=== PATIENT | female | born 1955 | race Caucasian/White ===

== ENCOUNTER → 2018-03-12 16:22 | Outpatient (CLI) | payer BC, SELFPAY ==
[2018-03-12 17:50] LABS: BUN 21 mg/dL (7-18); Creatinine, Serum 0.86 mg/dL (0.55-1.02); EST Glomerular Filtration Rate 71 mL/min (>60); Glucose 89 mg/dL (74-106); Hemoglobin 13.3 g/dl (12.0-15.0); Mean Corp Hgb Conc 32.4 g/gl (32-36); Mean Corpuscular Hgb 29.8 pg (27.0-32.0); Mean Corpuscular Volume 91.7 fL (81-99); Mean Platelet Vol. 10.4 fl (6.2-12.0); Platelet Count 315 K/mm3 (150-450); RBC Distribution Width CV 14.3 % (11.6-14.6); RBC Distribution Width SD 47.2 fl (35.1-43.9); Red Blood Count 4.47 M/mm3 (4.2-5.4); Scan Indicated on CBC? Y/N NO; White Blood Count 5.9 K/mm3 (4.4-11.0)
[2018-03-12 17:51] LABS: Anion Gap 8 (5-15); BUN/Creat Ratio 24.5 RATIO (10-20); Calcium,Total 9.3 mg/dL (8.5-10.1); Chloride 102 mmol/L (98-107); Est Glom Filt Rate - Afr Amer 86 mL/min (>60); Potassium 3.8 mmol/L (3.5-5.1); Sodium Level 140 mmol/L (136-145)
--- OUTSIDE RECORDS SUMMARY | 2018-05-17 11:52 | XMS RPT_ITS ---
:1955 Author Organization [facility] Care Team Providers Name Role Phone Natalia Gallo Attending Unavailable PROVIDER, UNKNOWN Referring Unavailable Jorge Luis Guillen Primary Care Unavailable Brian Pritchett Attending Unavailable PROVIDER, UNKNOWN Referring Unavailable Jorge Luis Guillen Primary Care Unavailable PROVIDER, UNKNOWN Referring Unavailable Jorge Luis Guillen Primary Care Unavailable MELANIE GOMEZ Attending Unavailable Brian Pritchett Attending Unavailable Brian Pritchett Referring Unavailable Jorge Luis Guillen Primary Care Unavailable PROBLEMS PROBLEMS DATE TYPE CONDITION / CODE ATTENDING STATUS SOURCE 02/19/2018 Admitting Essential (primary) MELANIE GOMEZ Active [facility] Diagnosis hypertension / System I10(ICD-10) Repository 02/19/2018 Admitting Hyperlipidemia, MELANIE GOMEZ Active [facility] Diagnosis unspecified / System E78.5(ICD-10) Repository 02/19/2018 Admitting Hypothyroidism, MELANIE GOMEZ Active [facility] Diagnosis unspecified / System E03.9(ICD-10) Repository 02/19/2018 Admitting Obesity, unspecified MELANIE GOMEZ Active [facility] Diagnosis / E66.9(ICD-10) System Repository 02/11/2018 Admitting Encounter for [facility] Diagnosis preprocedural Brian System cardiovascular Repository examination / Z01.810(ICD-10) 06/05/2017 Admitting Encntr screen Chriss Noble Active [facility] Diagnosis mammogram for Natalia System malignant neoplasm Repository of breast / Z12.31(ICD-10) PROCEDURES PROCEDURES No Procedure Records FoundRESULTS RESULTS CBC-COMPLETE BLOOD CNT Collected: 03/12/2018 Status: F Source: [place] NO DIFF 4:33 [place] [facility] [place] CODE TESTS RESULT OUT OF RANGE REFERENCE UNITS LAB L100.1000 4.4-11.0 K/mm3 Normal WBC 5.9 LAB L100.1200 4.2-5.4 M/mm3 Normal RBC 4.47 LAB L100.1300 12.0-15.0 g/dl Normal HGB 13.3 LAB L100.1400 37-47 % Normal HCT 41.0 LAB L100.1500 81-99 fL Normal MCV 91.7 LAB L100.1600 27.0-32.0 pg Normal MCH 29.8 LAB L100.1700 32-36 g/gl Normal MCHC 32.4 LAB L100.1810 11.6-14.6 % Normal RDW CV 14.3 LAB L100.1820 35.1-43.9 fl High RDW SD 47.2 LAB L100.1900 150-450 K/mm3 Normal PLT 315 LAB L100.2000 6.2-12.0 fl Normal MPV 10.4 Performed By: #### L100.0500 #### [facility] [address] [place], [address] BASIC METABOLIC Collected: 03/12/2018 Status: F Source: [place] PROFILE (BMP) 4:33 PM [facility] [place] CODE TESTS RESULT OUT OF RANGE REFERENCE UNITS LAB L501.0100 74-106 mg/dL Normal GLU 89 Result Comment: Please note revised GLUCOSE reference range effective 2017. LAB L501.1000 7-18 mg/dL High BUN 21 LAB L501.1100 0.55-1.02 mg/dL Normal CREAT,SERUM 0.86 Result Comment: The validity of the calculated GFR AND GFRAA in patients over 70 years has not been determined. Clinical correlation is essential. LAB L501.1110 >60 mL/min Normal EST GFR 71 Result Comment: Non- GFR Calc LAB L501.1115 >60 mL/min Normal EST GFR - AA 86 Result Comment: GFR Calc LAB L501.1300 10-20 RATIO High BUN/CRE 24.5 LAB L501.2200 8.5-10.1 mg/dL CA Normal 9.3 LAB L501.5300 136-145 mmol/L NA Normal 140 LAB L501.5600 3.5-5.1 mmol/L K Normal 3.8 LAB L501.5900 98-107 mmol/L CL Normal 102 LAB L501.6100 21.0-32.0 mmol/L Normal CO2 30.0 LAB L501.6200 5-15 Normal GAP 8 Performed By: #### L500.2500 #### [facility] [address] [place], [address] ED PROVIDER NOTE Observed: 02/19/2018 Status: F Source: [employer] 2:11 PM SYSTEM REPOSITORY [facility] ED eMERGENCY dEPARTMENT eNCOUnter Pt Name: Aysha Gutierrez Birthdate 1955 Date of evaluation: 02/19/2018 Provider: BLAISE BRANNON CNP CHIEF COMPLAINT Chief Complaint Patient presents with ? Hypertension Suppose to knee surgery today they were unable to do the surgery due to her BP being elevated, denies any blurry vision or headache HISTORY OF PRESENT ILLNESS (Location/Symptom, Timing/Onset,Context/Setting, Quality, Duration, Modifying Factors, Severity) Note limiting factors. HPI Aysha Gutierrez is a 62 y.o. female who presents to the emergency department Coming in with the complaint of hypertension. She denies symptoms. Denies blurred vision. Denies dizziness. Denies headache, chest pain, shortness breath, nausea vomiting, fever, chills. She states she came in for blood pressure adjustment because she was supposed to have meniscal surgery due to her right knee. States her blood pressure was 200/100 systolic and they would not do the surgery. She states that she is given anxiety medications but was still high. They sent her home and told her to follow up with primary care doctor. Came into here hoping to get treatment for her high blood pressure. Nursing Notes were reviewed. REVIEW OF SYSTEMS (2+ forlevel 4; 10+ for level 5) Review of Systems 10 point review of systems negative except for pertinent mentioned above in history of present illness above past medical history PAST MEDICAL HISTORY Past Medical History: Diagnosis Date ? Gout attack ? Headache(784.0) ? Hyperlipidemia ? Hypertension ? Hypothyroidism ? Obesity SURGICALHISTORY Past Surgical History: Procedure Laterality Date ? SECTION ? COLONOSCOPY 2006 ? KNEE CARTILAGE SURGERY Left ? LIPOMA RESECTION Dr Castro CURRENT MEDICATIONS Discharge Medication List as of 02/19/2018 3:16 PM CONTINUE these medications which have NOT CHANGED Details losartan (COZAAR) 100 MG tablet TAKE 1 TABLET DAILY, Disp- 90 tablet, R-1Normal levothyroxine (SYNTHROID) 75 MCG tablet TAKE 1 TABLET DAILY, Disp-90 tablet, R-1Normal Multiple Vitamins-Minerals (CORAL CALCIUM PLUS PO) Take 1 tablet by mouth dailyHistorical Med ALLERGIES Patient has no known allergies. FAMILY HISTORY Family History Problem Relation Age of Onset ? Cancer Mother breast ? Diabetes Mother ? Cirrhosis Mother ? Heart Disease Father SOCIAL HISTORY Social History Social History ? Marital status: Spouse name: N/A ? Number of children: N/A ? Years of education: N/A Social History Main Topics ? Smoking status: Never Smoker ? Smokeless tobacco: Never Used ? Alcohol use No ? Drug use: No ? Sexual activity: Yes Partners: Male Other Topics Concern ? None Social History Narrative ? None SCREENINGS @FLOW([id number])@ PHYSICAL EXAM (5+ for level 4, 8+ for level 5) ED Triage Vitals [02/19/18 1421] BP Temp Temp Source Pulse Resp SpO2 Height Weight (!) 218/125 98.3 ?F (36.8 ?C) Temporal 86 16 99 % -- 212 lb (96.2 kg) Physical Exam GENERAL: The patient appears nourished and normally developed. Vital signs as documented. EYES: Head exam is unremarkable. No scleral icterus or orbital trauma noted. HEENT: Mucous membranes moist. Nares patent without copious rhinorrhea. No enlarged lymphadenopathy. LUNGS: Lungs are clear to auscultation, without any respiratory distress. CARDIAC: Rhythm is regular. No dysrythmias or murmurs. ABDOMEN: Nontender with no obvious masses, and no peritoneal signs. EXTREMITIES: Non edematous, with no obvious deformities. SKIN: Good color, with no significant rashes. No pallor. NEURO: No obvious neurological deficits, normal sensation and strength bilaterally. patient able to ambulate. DIAGNOSTIC RESULTS EKG (Per Emergency Physician) RADIOLOGY (Per Emergency Physician): Interpretation per the Radiologist below, if available at the time of this note: No results found. LABS: Labs Reviewed - No data to display All other labs were within normal range or not returned as of this dictation. EMERGENCY DEPARTMENT COURSE and DIFFERENTIAL DIAGNOSIS/MDM: Vitals: Vitals: 02/19/18 1421 02/19/18 1434 02/19/18 1502 02/19/18 1527 BP: (!) 218/125 (!) 189/106 (!) 174/92 (!) 180/100 Pulse: 86 85 78 79 Resp: 16 Temp: 98.3 ?F (36.8 ?C) TempSrc: Temporal SpO2: 99% 99% 100% 96% Weight: 96.2 kg (212 lb) Medications - No data to display MDM. I have evaluated this patient on my own, per my scope of practice with an attending available for consultation. He shouldn't asymptomatic hypertension. Likely has been going on for quite some time. Has been compliant but I believe she meets blood pressure medication adjustments. Told to follow up with primary care doctor. I do not believe further intervention is needed at this time as she is asymptomatic and has never had symptoms. No headaches no chest pain no dizziness no blurred vision or vision changes. No abdominal pain no chest pain no fevers no chills no cough or signs of infection. He has, PE, dissection as symptoms do not relate this. Discharged home in stable condition told to follow primary care doctor for blood pressure medication adjustments. CONSULTS: None PROCEDURES: Unless otherwise noted below, none Procedures FINAL IMPRESSION 1. Essential hypertension DISPOSITION/PLAN DISPOSITION Decision To Discharge 02/19/2018 03:16:07 PM PATIENT REFERRED TO: Jorge Luis Guillen MD [address] [place] [address], [address] [facility] [address] DISCHARGE MEDICATIONS: Discharge Medication List as of 02/19/2018 3:16 PM (Pleasenote: Portions of this note were completed with a voice recognition program. Efforts were made toedit the dictations but occasionally words and phrases are mis-transcribed.) Form [id number].[id number] BLAISE BRANNON CNP (electronically signed) Emergency Medicine Provider BLAISE Brannon CNP 02/19/18 1648 PROGRESS Observed: 10/06/2017 Status: COMPLETED Source: [place] 11:00 AM [facility] REPOSITORY HNO ID: [id number] Author: Natalia Banerjee Service: (none) Author Type: Physician Type: Progress Notes Filed: 10/06/2017 11:34 AM Note Text: SUBJECTIVE: Aysha Gutierrez is a 62 year old woman who presents for us results. Uterus normal size with unchanged fibroids x 3, endo 4.9 mm and normal, L ovary with smaller cyst 1.7 cm (2.3 cm),no free fluid. Compared to prior US. No LMP recorded. Patient is postmenopausal.. Medications, allergies, surgeries, family history updated, and smoking status updated. Pt has occ twinge in LLQ; no pain today. OBJECTIVE: BP 128/82 Ht 5' 6 (1.68m) Wt 223 lb (101.2kg) BMI 36.01 kg/(m2). See US ASSESSMENT/PLAN: 1. Cyst of left ovary - ICD9: 620.2, ICD10: N83.202 (primary diagnosis) smaller 2. Intramural leiomyoma of uterus - ICD9: 218.1, ICD10: D25.1 stable Natalia Banerjee MD PROGRESS Observed: 10/06/2017 Status: COMPLETED Source: [place] 10:[address] [facility] REPOSITORY HNO ID: [id number] Author: Rhiannon Elizalde Service: (none) Author Type: (none) Type: Progress Notes Filed: 10/06/2017 11:05 AM Note Text: Patient here for [employer] US. Rhiannon Tonio [facility] MG BREAST TOMOSYNTHESIS Observed: 06/05/2017 Status: F Source: [employer] SCR BL 12:00 AM SYSTEM REPOSITORY Patient Name: AYSHA GUTIERREZ Mammography Exam Date/Time 06/05/2017 17:30:12 EDT Exam MG Breast Tomosynthesis BI Scr Ordering Physician NATALIA GALLO Accession Number [id number] CPT4 Codes 05078 (MG Breast Tomosynthesis Scr Bl), 31593 (MG MAMMO 2D SCREENING) Reason For Exam screening Report PATIENT HISTORY: Patient is postmenopausal. Family history of breast cancer at age 58 in mother, ovarian cancer at age 70 in maternal aunt, breast cancer at age 78 in maternal aunt. No Hormone Replacement Therapy Patient has never smoked. Patient's BMI is 33.1. TIME SINCE LAST MAMMOGRAM: Last mammogram was performed 1 year and 3 months ago. REASON FOR EXAM: screening, asymptomatic. PROCEDURE: MG BREAST TOMOSYNTHESIS BL SCR: JUNE 05, 2017 - 2D/3D Procedure 3D Bilateral CC and MLO view(s) were taken. 2D Bilateral CC and MLO view(s) were taken. Prior study comparison: March 13, 2016, bilateral MG mammogram digital diagnostic bilat performed at [facility]. January 17, 2014, right breast screening mammogram performed at [facility]. TISSUE DENSITY: The breast tissue is heterogeneously dense, which could obscure underlying abnormalities. . FINDINGS: No suspicious masses, architectural distortions or suspiciously clustered calcifications are identified. There is no evidence of skin thickening or nipple retraction. There are no significant changes when compared with prior studies. Markings on images: BB's = Nipples; skin lesions Open ione = Palpable Line = Scar 2D digital mammography and tomosynthesis imaging were performed and reviewed with CAD. ASSESSMENT: Category 1 Negative No mammographic evidence of malignancy. RECOMMENDATION: Routine screening mammogram of both breasts in 1 year. . Report Dictated on Cancer Risk Assessment: This risk assessment is based on patient provided information collected in a risk survey taken at the time of this examination. 5 year breast cancer risk is 4.3% - if greater than or equal to 1.7%, recommend discussion regarding the significance of these results and options for possible risk reduction. Lifetime breast cancer risk: 19.5% - If greater than or equal to 20%, consider annual mammogram and annual screening Breast MRI or follow up in high risk clinic. Is the patient at elevated risk based on the HBOC criteria? Yes (Hereditary Breast and Ovarian Cancer) - If yes, consider genetic counseling and testing with high risk follow up. HNPCC mutation risk (Solomon Syndrome): 1.1% - if greater than or equal to 5%, consider genetic counseling, testing and screening colonoscopy. Final Signed Date and Time: 06/06/2017 8:51 am Signed by: MD MARIELLA, MANUELA ALLERGIES ALLERGIES No Allergies Records FoundENCOUNTERS ENCOUNTERS ADMIT/DISCHARGE ACCOUNT NUMBER ADMITTING ENCOUNTER LOCATION SOURCE CLASS 03/12/2018 [id number] [facility]:MTLAB Repository 02/19/2018 [id number] Emergency [facility] EDRoom: 2A System 444Bed: Repository [id number] 02/11/2018 [id number] Ambulatory [facility] System Repository 06/05/2017 [id number] Ambulatory [facility] Repository PAYERS PAYERS ENCOUNTER GUARANTOR PAYER SUBSCRIBER SOURCE 03/12/2018 AYSHA GUTIERREZ35 Primary AYSHA L BAKERDOB: Story Insurance:[employer] [id number] Number: Hospital [id number]: (330) [id number] Repository [phone] (HP) Date:2612-30-04FP [id number] [place] [address] [id number]: 03/12/2018 Secondary NOT GIVENUNK Story Insurance:SELF PAY [facility] Number: Effective Repository Date:2018-03-12 02/19/2018 Aysha GutierrezDOB: Primary Aysha L BakerDOB: [employer] [facility] [employer] Insurance:[employer] [id number] System [address] [facility] Repository [place], [place] ShieldPolic Number: [id number]: ([phone] Effective Date: [phone] (HP) 02/11/2018 Aysha L BakerDOB: Primary Aysha L BakerDOB: [employer] [facility] Insurance:[employer] [id number] System 30th [employer] Repository [place], [place] ShieldPolicy Number: [id number]: (330) Effective Date: [phone] (HP) 06/05/2017 Aysha L BakerDOB: Primary [facility] L [facility] Insurance:[employer] [id number] System 30th [employer] Repository [place], [place] ShieldPolicy Number: [id number]: (330) Effective Date: [phone] (HP)
== END ==
PROVIDERS: Family Provider Family Medicine; PCP Family Medicine; Referring Provider Orthopaedic Surgery; Visit Provider Orthopaedic Surgery
DX: Z01.818 Encounter for other preprocedural examination (principal); Z01.810 Encounter for preprocedural cardiovascular examination
CPT/HCPCS: 36415; 80048; 85027